=== PATIENT | female | born 1940 | race Caucasian/White ===

== ENCOUNTER 2016-09-24 22:28 | Inpatient (IN) | payer MEDICARE, OTHER ==
[~2016-09-24] VITALS: Ht 152.4 cm; Wt 61.7 kg
[~2016-09-24 22:28] MED LIST: ASPIRIN 325MG325 MG NG; NORVASC10 MG PO
[2016-09-25 02:07] LABS: RED BLOOD COUNT 3.59 M/UL (4.00-5.10); WHITE BLOOD COUNT 9.4 K/UL (4.5-11.0)
[2016-09-25 02:27] LABS: BUN/CREATININE RATIO 29 (0-10)
[2016-09-25 04:23] LABS: HEMOGLOBIN 9.7 gm/dl (12.3-15.3); RED BLOOD COUNT 3.53 M/UL (4.00-5.10); WHITE BLOOD COUNT 8.7 K/UL (4.5-11.0)
[2016-09-25 10:22] LABS: HEMOGLOBIN 8.7 gm/dl (12.3-15.3)
[2016-09-25] MEDS ORDERED: LIPITOR40 MG PO (13:17)
[2016-09-25] MEDS ORDERED: PLAVIX 75 MG TA75 MG PO (13:17)
[2016-09-25] MEDS ORDERED: LANTUS SOL100 UNIT/1 SQ (13:18)
[2016-09-25] MEDS ORDERED: SYNTHROID100 MCG PO (13:19)
[2016-09-25] MEDS ORDERED: XANAX0.25 MG PO (13:20)
[2016-09-25] MEDS ORDERED: CARAFATE1 GM PO (13:21)
[2016-09-25] MEDS ORDERED: DIOVAN160 MG PO (13:21)
[2016-09-25] MEDS ORDERED: LOPRESSOR 25 MG25 MG PO (13:22)
[2016-09-25] MEDS ORDERED: VITAMIN D50000 UNIT PO (13:22)
[2016-09-25] MEDS ORDERED: NITROSTAT 0.40.4 MG SL (13:24)
[2016-09-25] MEDS ORDERED: ZOFRAN4 MG PO (13:24)
[2016-09-25] MEDS ORDERED: LACTULOSE20 GM/30 M PO (13:26)
[2016-09-25 16:31] LABS: HEMOGLOBIN 8.1 gm/dl (12.3-15.3)
[2016-09-26 06:23] LABS: HEMOGLOBIN 9.7 gm/dl (12.3-15.3); RED BLOOD COUNT 3.48 M/UL (4.00-5.10)
[2016-09-26 06:28] LABS: WHITE BLOOD COUNT 6.3 K/UL (4.5-11.0)
[2016-09-26 06:46] LABS: BUN/CREATININE RATIO 10 (0-10)
[2016-09-26 08:20] LABS: HEMOGLOBIN 10.4 gm/dl (12.3-15.3)
[2016-09-26 16:07] LABS: HEMOGLOBIN 10.4 gm/dl (12.3-15.3)
== END 2016-09-26 20:39 | disposition home or self-care (01) | DRG 378 ==
LOC: ER1 22:28 → ZEROF 09-25 03:11 → MED SURG 4 09-25 14:06
PROVIDERS: Internal Medicine; Internal Medicine Gastroenterology; Physician Assistant; ADMIT Family Medicine
PROC: 0W3P8ZZ Control Bleeding in Gastrointestinal Tract, Via Natural or Artificial Opening Endoscopic (ICD-10-PCS; principal; 2016-09-25 08:15)
PROC: 0DJ08ZZ Inspection of Upper Intestinal Tract, Via Natural or Artificial Opening Endoscopic (ICD-10-PCS; 2016-09-25 08:15)
PROC: 30233H1 Transfusion of Nonautologous Whole Blood into Peripheral Vein, Percutaneous Approach (ICD-10-PCS; 2016-09-25 08:15)
DX: K28.4 Chronic or unspecified gastrojejunal ulcer with hemorrhage (principal); K55.9 Vascular disorder of intestine, unspecified; E87.2 Acidosis; D62 Acute posthemorrhagic anemia; G40.909 Epilepsy, unspecified, not intractable, without status epilepticus; I25.10 Atherosclerotic heart disease of native coronary artery without angina pectoris; I70.1 Atherosclerosis of renal artery; E11.9 Type 2 diabetes mellitus without complications; I10 Essential (primary) hypertension; E78.5 Hyperlipidemia, unspecified; K21.9 Gastro-esophageal reflux disease without esophagitis; F03.90 Unspecified dementia, unspecified severity, without behavioral disturbance, psychotic disturbance, mood disturbance, and anxiety; D64.9 Anemia, unspecified; D64.89 Other specified anemias; K29.70 Gastritis, unspecified, without bleeding; I73.9 Peripheral vascular disease, unspecified; Z79.82 Long term (current) use of aspirin; Z79.899 Other long term (current) drug therapy; Z95.1 Presence of aortocoronary bypass graft; Z95.5 Presence of coronary angioplasty implant and graft; Z79.4 Long term (current) use of insulin; Z88.8 Allergy status to other drugs, medicaments and biological substances
CPT/HCPCS: 36415; 71010; 80048; 80053; 82550; 82553; 82962; 83605; 83690; 83874; 84484; 85014; 85018; 85025; 85610; 85730; 86850; 86900; 86901; 86920; 96365; 96366; 96375; 99284; C9113; J0360; J2405; J7040; J7050; P9016; Q0162; Q9962